=== PATIENT | female | born 1950 | race Hispanic/Latino ===

== ENCOUNTER 2018-07-17 18:14 | Emergency (ER) | payer MEDICARE ==
[2018-07-17 19:11] LABS: CREATININE 0.9 mg/dL (0.5-1.5); POTASSIUM 3.7 mmol/L (3.5-5.1)
[2018-07-17 19:16] LABS: ALBUMIN 3.7 g/dL (3.5-5.0); BILIRUBIN,TOTAL 0.4 mg/dL (0.2-1.0); TOTAL PROTEIN, SERUM 7.2 g/dL (6.0-8.3)
[2018-07-17 19:17] LABS: BASOPHILS % (AUTO) 0.9 % (0.0-5.0); EOSINOPHILS % (AUTO) 1.9 % (0.0-8.0); LYMPHOCYTES % (AUTO) 28.8 % (21.0-51.0); MEAN CORPUSCULAR HEMOGLOBIN 33.2 pg (27.0-33.0); MEAN CORPUSCULAR HGB CONC 34.7 g/dL (32.0-36.0); MEAN CORPUSCULAR VOLUME 95.7 fL (79-99); MONOCYTES % (AUTO) 7.3 % (3.0-13.0); NEUTROPHILS % (AUTO) 61.1 % (40.0-77.0); PLATELET COUNT (AUTO) 198 K/uL (130-400); RED BLOOD CELL COUNT(AUTO) 4.18 MIL/uL (4.00-5.50); RED CELL DISTRIBUTION WIDTH 13.7 % (11.0-15.5)
[2018-07-17 20:05] LABS: APPEARANCE,URINE Clear (CLEAR); BILIRUBIN,URINE Negative (NEGATIVE); COLOR,URINE Yellow (YELLOW); GLUCOSE, URINE (UA) Negative (NEGATIVE); KETONES,URINE Negative (NEGATIVE); LEUKOCYTE ESTERASE ,URINE Negative (NEGATIVE); NITRATE,URINE Negative (NEGATIVE); OCCULT BLOOD,URINE Negative (NEGATIVE); PROTEIN,URINE Negative (NEGATIVE); UROBILINOGEN,URINE 0.2 mg/dL (0.2-1.0)
[2018-07-17] MEDS ORDERED: IOHEXOL-350 75 ML VIAL IV ONE (20:48)
[2018-07-17] MEDS ORDERED: KETOROLAC TROMETHAMINE 15MG/ML ONE (23:12)
[2018-07-17] MEDS ORDERED: PROCHLORPERAZINE EDISYLATE 10 MG/2 ML VIAL ONE (23:12)
[2018-07-18] MEDS ORDERED: CLOPIDOGREL BISULFATE 300 MG TAB ONE (00:05)
[2018-07-18] MEDS ORDERED: GADODIAMIDE 10 MMOL/20 ML VIAL IV ONE (02:10)
== END 2018-07-18 04:02 | disposition home or self-care (01) ==
LOC: EDH 18:14
DX: R42 Dizziness and giddiness (principal); R51 Headache; H53.8 Other visual disturbances; E78.5 Hyperlipidemia, unspecified; I10 Essential (primary) hypertension; E07.9 Disorder of thyroid, unspecified; Z90.49 Acquired absence of other specified parts of digestive tract; Z90.710 Acquired absence of both cervix and uterus; Z87.891 Personal history of nicotine dependence
CPT/HCPCS: 36415; 70450; 70496; 70498; 70544; 70553; 80053; 81003; 85025; 85651; 86140; 93005; 99285; A9579; J0780; J1885; Q9967

== ENCOUNTER 2023-01-28 08:57 | Inpatient (IN) | payer MEDICARE ==
[~2023-01-28] VITALS: Ht 172.7 cm; Wt 95.0 kg
[2023-01-28 09:28] LABS: BASOPHILS # (AUTO) 0.08 K/uL (0.00-0.20); BASOPHILS % (AUTO) 0.8 % (0.0-5.0); EOSINOPHILS # (AUTO) 0.19 K/uL (0.00-0.70); HEMATOCRIT 41.3 % (36-48); IMMATURE GRANULOCYTE ABSOLUTE 0.04 K/uL (0-1); LYMPHOCYTES # (AUTO) 1.9 K/uL (1.0-4.8); LYMPHOCYTES % (AUTO) 20.1 % (21.0-51.0); MEAN CORPUSCULAR HEMOGLOBIN 32.9 pg (27.0-33.0); MEAN CORPUSCULAR HGB CONC 33.7 g/dL (32.0-36.0); MEAN CORPUSCULAR VOLUME 97.6 fL (79-99); MONOCYTES # (AUTO) 0.6 K/uL (0.1-1.0); MONOCYTES % (AUTO) 5.8 % (3.0-13.0); NEUTROPHILS # (AUTO) 6.8 K/uL (1.8-7.7); NEUTROPHILS % (AUTO) 70.9 % (40.0-77.0); PLATELET COUNT (AUTO) 196 K/uL (130-400); RED BLOOD CELL COUNT(AUTO) 4.23 MIL/uL (4.00-5.50); RED CELL DISTRIBUTION WIDTH 13.1 % (11.0-15.5); WHITE BLOOD COUNT (AUTO) 9.6 K/uL (4.8-10.8)
[2023-01-28 09:48] LABS: ALBUMIN 3.6 g/dL (3.5-5.0); BILIRUBIN,TOTAL 0.6 mg/dL (0.2-1.0); TOTAL PROTEIN, SERUM 7.3 g/dL (6.0-8.3)
[2023-01-28 10:40] LABS: APPEARANCE,URINE CLEAR (CLEAR); BILIRUBIN,URINE NEGATIVE (NEGATIVE); COLOR,URINE LIGHT-YELLOW (YELLOW); GLUCOSE, URINE (UA) NEGATIVE (NEGATIVE); KETONES,URINE NEGATIVE (NEGATIVE); LEUKOCYTE ESTERASE ,URINE NEGATIVE Leu/uL (NEGATIVE); NITRATE,URINE NEGATIVE (NEGATIVE); OCCULT BLOOD,URINE NEGATIVE (NEGATIVE); PH,URINE 6.5 (5.0-8.0); PROTEIN,URINE NEGATIVE (NEGATIVE); UROBILINOGEN,URINE 0.2 mg/dL (0.2-1.0)
[2023-01-28 10:41] LABS: ADD UA MICROSCOPIC NO
[2023-01-28] MEDS ORDERED: IOHEXOL 350 MG/ML 100ML INFUS..BTL IV ONE (11:04)
[2023-01-28] MEDS ORDERED: NITROGLYCERIN 0.4 MG SL TAB SL PRN (13:30)
[2023-01-28] MEDS ORDERED: CLOPIDOGREL 75MG TAB PO ONE (13:30)
[2023-01-28 14:39] LABS: THYROID STIMULATING HORMONE 5.43 uIU/mL (0.36-3.74)
[2023-01-28 15:36] LABS: HEMOGLOBIN A1C 5.6 % (4.0-6.0)
[2023-01-28] MEDS ORDERED: REGADENOSON 0.4 MG/5 ML PF SYG IVP SCH (20:30)
[2023-01-28] MEDS ORDERED: FAMOTIDINE 20MG VIAL IV SCH (21:00)
[2023-01-28] MEDS ORDERED: NORT10CA2 PO (22:01)
[2023-01-28] MEDS ORDERED: OMEP40CA21 PO (22:01)
[2023-01-28] MEDS ORDERED: LEVO50CA4 PO (22:01)
[2023-01-28] MEDS ORDERED: TELM80TA10 PO (22:01)
[2023-01-28 23:00] VITALS: BP 118/72; PULSE 61; RESP 20
[2023-01-28] MEDS ORDERED: ONDA4TAB10 PO (23:22)
[2023-01-28] MEDS ORDERED: ALEN70TA80 PO (23:22)
[2023-01-28] MEDS ORDERED: FAMO40TA7 PO (23:22)
[2023-01-29] VITALS (8 sets, daily range): BP systolic 108–127; BP diastolic 60–74; PULSE 64–78; RESP 16–19; O2SAT 98
[2023-01-29] MEDS: ACETAMINOPHEN 325 MG TAB PO PRN ×2 (00:30→20:05)
[2023-01-29] MEDS ORDERED: KETOROLAC 15MG/ML VIAL (15MG/ML) IV PRN (00:30)
[2023-01-29] MEDS: LEVOTHYROXINE 50 MCG TABLET PO SCH (05:36)
[2023-01-29] MEDS ORDERED: NON-FORMULARY MEDICATION 1 EACH (Levothyroxine Sodium (Levothyroxine) 50 MCG) PO SCH (07:30)
[2023-01-29] MEDS ORDERED: REGADENOSON 0.4 MG/5 ML PF SYG IVP SCH (08:00)
[2023-01-29] MEDS: PANTOPRAZOLE 40 MG TAB DR PO SCH (08:11)
[2023-01-29] MEDS: TELMISARTAN 80MG TABLET PO SCH (08:12)
[2023-01-29] MEDS ORDERED: NON-FORMULARY MEDICATION 1 EACH (Telmisartan 80 MG) PO SCH (09:00)
[2023-01-29] MEDS ORDERED: CLOPIDOGREL 75MG TAB PO SCH (09:00)
[2023-01-29] MEDS ORDERED: NON-FORMULARY MEDICATION 1 EACH (Omeprazole 40 MG) PO SCH (09:00)
[2023-01-29] MEDS ORDERED: NORTRIPTYLINE HCL 10 MG PO SCH (21:00)
[2023-01-29] MEDS ORDERED: NORTRIPTYLINE 10 MG PO SCH (21:00)
[2023-01-30 02:41] VITALS: O2SAT 98
[2023-01-30 04:00] VITALS: BP 103/54; PULSE 67; RESP 18
[2023-01-30] MEDS: LEVOTHYROXINE 50 MCG TABLET PO SCH (05:46)
[2023-01-30 07:45] VITALS: BP 122/59; PULSE 69; RESP 18
[2023-01-30 08:00] VITALS: O2SAT 98
[2023-01-30] MEDS: PANTOPRAZOLE 40 MG TAB DR PO SCH (08:57)
[2023-01-30] MEDS: TELMISARTAN 80MG TABLET PO SCH (08:57)
== END 2023-01-30 11:40 | disposition home or self-care (01) | DRG 392 ==
LOC: EDH 08:57 → EDHIP 13:23 → 3DH 01-29
PROVIDERS: ADMIT Internal Medicine; ATTEND Internal Medicine
PROC: 4A02XM4 Measurement of Cardiac Total Activity, External Approach (ICD-10-PCS; principal; 2023-01-29)
PROC: 3E033HZ Introduction of Radioactive Substance into Peripheral Vein, Percutaneous Approach (ICD-10-PCS; 2023-01-29)
DX: K21.9 Gastro-esophageal reflux disease without esophagitis (principal); R07.89 Other chest pain; J20.9 Acute bronchitis, unspecified; E03.9 Hypothyroidism, unspecified; I10 Essential (primary) hypertension; E78.00 Pure hypercholesterolemia, unspecified; F17.200 Nicotine dependence, unspecified, uncomplicated; E66.9 Obesity, unspecified; J06.9 Acute upper respiratory infection, unspecified; K46.9 Unspecified abdominal hernia without obstruction or gangrene; Z88.6 Allergy status to analgesic agent; Z60.2 Problems related to living alone; Z88.0 Allergy status to penicillin; Z91.013 Allergy to seafood; Z68.31 Body mass index [BMI] 31.0-31.9, adult; Z82.49 Family history of ischemic heart disease and other diseases of the circulatory system; Z90.710 Acquired absence of both cervix and uterus; Z90.49 Acquired absence of other specified parts of digestive tract; Z98.51 Tubal ligation status
CPT/HCPCS: 36415; 71045; 71275; 74174; 78452; 80053; 81003; 83036; 83690; 83880; 84145; 84443; 84484; 85025; 85378; 93005; 93017; 93306; 93356; 93970; 96374; 99291; A9500; G0378; J2785; J3490; Q9967

== ENCOUNTER → 2024-03-05 | Outpatient (CLI) | payer OTHER ==
[~2024-03-05] MED LIST: ALEN70TA80 PO; FAMO40TA7 PO; LEVO50CA4 PO; NORT10CA2 PO; OMEP40CA21 PO; ONDA-243 PO; TELM80TA10 PO
--- NOTE | 2024-03-05 12:10 | HMCIMG ---
US ABDOMINAL COMPLETE HISTORY: Abdominal pain COMPARISON: None TECHNIQUE: Multiple transverse and longitudinal ultrasound images of the abdomen were obtained. FINDINGS: Liver measures 16 cm. Atherosclerotic changes of the abdomen are noted. Flow is seen in the inferior vena cava. Spleen measured 9 cm. The visualized portion of the pancreas is within normal limits. Liver is echogenic consistent with liver parenchymal disease. Gallbladder has been removed. Common duct measures 4 mm. Portal vein is patent. Both kidneys are seen. Right kidney measures 9.4 x 4.6 x 3.4 cm. Left kidney measures 8.9 x 5.1 x 3.4 cm. There are bilateral perinephric fat. No hydronephrosis is seen of the both kidneys. The spleen is grossly unremarkable. IMPRESSION: 1. Post cholecystectomy. No ductal dilatation is seen. 2. No hydronephrosis is seen.
== END | disposition home or self-care (01) ==
LOC: RAH 08:56
PROVIDERS: ATTEND Nurse Practitioner Family
DX: R10.9 Unspecified abdominal pain (principal); I70.8 Atherosclerosis of other arteries; Z90.49 Acquired absence of other specified parts of digestive tract
CPT/HCPCS: 76700

== ENCOUNTER → 2024-05-26 | Outpatient (CLI) | payer OTHER ==
--- NOTE | 2024-05-26 13:11 | HMCIMG ---
UPPER GI TRACT, WO KUB REASON: GERD. COMPARISON: None TECHNIQUE: Biphasic upper GI series study was performed. FINDINGS: There is no obstruction to the antegrade passage of barium from mouth through jejunum. A normal esophageal stripping with is seen. Moderate size hiatal hernia is seen. There is gastroesophageal reflux into the level of upper mid thoracic esophagus. Stomach is well distended without ulceration or mass lesion. Duodenal bulb and duodenal sweep are unremarkable. IMPRESSION: Moderate size hiatal hernia. Gastroesophageal reflux to the level of upper mid thoracic esophagus.
== END | disposition home or self-care (01) ==
LOC: RAH 09:39
PROVIDERS: ATTEND Surgery
DX: K21.9 Gastro-esophageal reflux disease without esophagitis (principal); K44.9 Diaphragmatic hernia without obstruction or gangrene; K31.89 Other diseases of stomach and duodenum
CPT/HCPCS: 74240